=== PATIENT | male | born 1975 | race Caucasian/White ===

== ENCOUNTER 2021-01-24 20:52 | Inpatient (IN) | payer BC ==
[2021-01-24] MEDS ORDERED: HYDROmorphone 1 MG/ML 1 ML SYRINGE IVP STA ×2 (21:13→22:12)
[2021-01-24] MEDS ORDERED: diphenhydrAMINE 50 MG/ML 1 ML VIAL IVP STA (21:13)
[2021-01-24] MEDS ORDERED: FAMOTIDINE 20 MG/2 ML VIAL IV STA (21:13)
[2021-01-24] MEDS ORDERED: methylPREDNISolone SOD SUCCI 125 MG/2 ML VIAL IV STA (21:14)
--- NOTE | 2021-01-24 21:17 | ED ---
General Adult HPI - General Chief complaint: Abdominal Pain Stated complaint: Abdominal pain Time Seen by Provider: 01/24/21 21:06 Source: patient, family, RN notes reviewed Mode of arrival: wheelchair Limitations: no limitations - History of Present Illness Initial comments: Patient is a pleasant 45-year-old male presenting to the emergency Department with complaints of epigastric pain. Onset of symptoms was around 2 hours ago. Symptoms started fairly suddenly following an hour after eating. Discomfort is in the epigastric region. Discomfort feels a pressure and there is some radiation towards the back. No dyspnea. No pain in the chest. No history of similar symptoms previously. Discomfort is rated 8/10 and persistent. Patient occasionally drinks alcohol. No diaphoresis. No vomiting. - Related Data Home Medications Medication Instructions Recorded Confirmed No Known Home Medications 01/24/21 01/24/21 Allergies Allergy/AdvReac Type Severity Reaction Status Date / Time Iodinated Contrast Media Allergy Anaphylaxis Verified 01/24/21 22:54 shellfish derived [Shellfish] Allergy Anaphylaxis Verified 01/24/21 22:54 Review of Systems ROS Statement: Those systems with pertinent positive or pertinent negative responses have been documented in the HPI. ROS Other: All systems not noted in ROS Statement are negative. Constitutional: Denies: fever Eyes: Denies: eye pain ENT: Denies: ear pain Respiratory: Denies: cough, dyspnea Cardiovascular: Reports: as per HPI. Denies: chest pain Endocrine: Denies: fatigue Gastrointestinal: Reports: as per HPI, abdominal pain Musculoskeletal: Denies: arthralgia Skin: Denies: rash Neurological: Denies: weakness Past Medical History Past Medical History: Hypertension History of Any Multi-Drug Resistant Organisms: None Reported Past Surgical History: Orthopedic Surgery Past Psychological History: No Psychological Hx Reported Smoking Status: Never smoker Past Alcohol Use History: Occasional Past Drug Use History: None Reported General Exam Limitations: no limitations General appearance: alert Head exam: Present: atraumatic Eye exam: Present: normal appearance ENT exam: Present: normal exam Neck exam: Present: normal inspection Respiratory exam: Present: normal lung sounds bilaterally. Absent: chest wall tenderness Cardiovascular Exam: Present: regular rate, normal rhythm, normal heart sounds Expanded Peripheral pulses: 2+: Radial (R), Radial (L), Dorsalis Pedis (R), Dorsalis Pedis (L) GI/Abdominal exam: Present: soft, tenderness (Moderate epigastric tenderness to palpation), normal bowel sounds. Absent: distended, rebound, rigid, pulsatile mass Extremities exam: Present: normal inspection. Absent: pedal edema, calf tenderness Neurological exam: Present: alert Psychiatric exam: Present: normal affect, normal mood Skin exam: Present: normal color Course Vital Signs 01/24/21 01/24/21 20:58 22:42 Temperature 98.8 F Pulse Rate 68 72 Respiratory 18 18 Rate Blood Pressure 173/98 164/89 O2 Sat by Pulse 98 98 Oximetry EKG Findings - EKG Comments: EKG Findings:: Normal sinus rhythm 66. FL 148. QRS 92. QT 380. QTC 398. Normal axis. Normal QRS. No acute ST change. Medical Decision Making - Medical Decision Making Patient reevaluated and feels somewhat improved. Abdomen still with moderate tenderness epigastrium and right upper quadrant. Patient states discomfort has improved to 4-5/10 following several medications. Case was discussed with Dr. Nowak, who will admit. - Lab Data Result diagrams: 01/24/21 21:31 01/24/21 21:31 Lab Results 01/24/21 01/24/21 01/24/21 Range/Units 21:31 21:31 21:31 WBC 8.9 (3.8-10.6) k/uL RBC 4.61 (4.30-5.90) m/uL Hgb 14.0 (13.0-17.5) gm/dL Hct 39.9 (39.0-53.0) % MCV 86.5 (80.0-100.0) fL MCH 30.4 (25.0-35.0) pg MCHC 35.1 (31.0-37.0) g/dL RDW 11.9 (11.5-15.5) % Plt Count 260 (150-450) k/uL MPV 6.7 Neutrophils % 64 % Lymphocytes % 26 % Monocytes % 6 % Eosinophils % 2 % Basophils % 0 % Neutrophils # 5.7 (1.3-7.7) k/uL Lymphocytes # 2.3 (1.0-4.8) k/uL Monocytes # 0.6 (0-1.0) k/uL Eosinophils # 0.2 (0-0.7) k/uL Basophils # 0.0 (0-0.2) k/uL PT (9.0-12.0) sec INR (<1.2) APTT (22.0-30.0) sec Sodium 137 (137-145) mmol/L Potassium 3.8 (3.5-5.1) mmol/L Chloride 101 (98-107) mmol/L Carbon Dioxide 24 (22-30) mmol/L Anion Gap 12 mmol/L BUN 16 (9-20) mg/dL Creatinine 0.86 (0.66-1.25) mg/dL Est GFR (CKD-EPI)AfAm >90 (>60 ml/min/1.73 sqM) Est GFR (CKD-EPI)NonAf >90 (>60 ml/min/1.73 sqM) Glucose 103 H (74-99) mg/dL Calcium 9.2 (8.4-10.2) mg/dL Total Bilirubin 0.6 (0.2-1.3) mg/dL AST 38 (17-59) U/L ALT 38 (4-49) U/L Alkaline Phosphatase 86 (38-126) U/L Troponin I <0.012 (0.000-0.034) ng/mL Total Protein 7.3 (6.3-8.2) g/dL Albumin 4.4 (3.5-5.0) g/dL Amylase 60 (30-110) U/L Lipase 140 (23-300) U/L 01/24/21 Range/Units 21:31 WBC (3.8-10.6) k/uL RBC (4.30-5.90) m/uL Hgb (13.0-17.5) gm/dL Hct (39.0-53.0) % MCV (80.0-100.0) fL MCH (25.0-35.0) pg MCHC (31.0-37.0) g/dL RDW (11.5-15.5) % Plt Count (150-450) k/uL MPV Neutrophils % % Lymphocytes % % Monocytes % % Eosinophils % % Basophils % % Neutrophils # (1.3-7.7) k/uL Lymphocytes # (1.0-4.8) k/uL Monocytes # (0-1.0) k/uL Eosinophils # (0-0.7) k/uL Basophils # (0-0.2) k/uL PT 10.2 (9.0-12.0) sec INR 0.9 (<1.2) APTT 24.9 (22.0-30.0) sec Sodium (137-145) mmol/L Potassium (3.5-5.1) mmol/L Chloride (98-107) mmol/L Carbon Dioxide (22-30) mmol/L Anion Gap mmol/L BUN (9-20) mg/dL Creatinine (0.66-1.25) mg/dL Est GFR (CKD-EPI)AfAm (>60 ml/min/1.73 sqM) Est GFR (CKD-EPI)NonAf (>60 ml/min/1.73 sqM) Glucose (74-99) mg/dL Calcium (8.4-10.2) mg/dL Total Bilirubin (0.2-1.3) mg/dL AST (17-59) U/L ALT (4-49) U/L Alkaline Phosphatase (38-126) U/L Troponin I (0.000-0.034) ng/mL Total Protein (6.3-8.2) g/dL Albumin (3.5-5.0) g/dL Amylase (30-110) U/L Lipase (23-300) U/L - Radiology Data Radiology results: report reviewed (Computed tomography scan abdomen pelvis reveals no acute process. Gallbladder ultrasound does show distended gallbladder. Positive Koroma sign), image reviewed (Chest x-ray shows no acute process) Disposition Clinical Impression: Biliary colic Disposition: ADMITTED IP TO THIS [facility] Is patient prescribed a controlled substance at d/c from ED?: No Referrals: Roel Gama DO [Primary Care Provider] - 1-2 days Decision Time: 23:16
[2021-01-24 21:38] LABS: Basophils % (A) 0 %; Eosinophils # (A) 0.2 k/uL (0-0.7); Eosinophils % (A) 2 %; HCT 39.9 % (39.0-53.0); Lymphocytes # (A) 2.3 k/uL (1.0-4.8); Lymphocytes % (A) 26 %; MCH 30.4 pg (25.0-35.0); MCHC 35.1 g/dL (31.0-37.0); MCV 86.5 fL (80.0-100.0); Mean Platelet Volume 6.7; Monocytes # (A) 0.6 k/uL (0-1.0); Monocytes % (A) 6 %; Neutrophils # (A) 5.7 k/uL (1.3-7.7); Neutrophils % (A) 64 %; Platelet Count 260 k/uL (150-450); RBC 4.61 m/uL (4.30-5.90); RDW 11.9 % (11.5-15.5); WBC 8.9 k/uL (3.8-10.6)
[2021-01-24 21:50] LABS: ALT 38 U/L (4-49); AST 38 U/L (17-59); African American GFR (CKD) >90 (>60 ml/min/1.73 sqM); Albumin 4.4 g/dL (3.5-5.0); Alkaline Phosphatase 86 U/L (38-126); Amylase 60 U/L (30-110); Anion Gap 12 mmol/L; Blood Urea Nitrogen 16 mg/dL (9-20); Calcium 9.2 mg/dL (8.4-10.2); Carbon Dioxide 24 mmol/L (22-30); Chloride 101 mmol/L (98-107); Glucose 103 mg/dL (74-99); Lipase 140 U/L (23-300); Non-African American GFR(CKD) >90 (>60 ml/min/1.73 sqM); Potassium 3.8 mmol/L (3.5-5.1); Sodium 137 mmol/L (137-145); Total Bilirubin 0.6 mg/dL (0.2-1.3); Total Protein 7.3 g/dL (6.3-8.2)
[2021-01-24] MEDS ORDERED: METOCLOPRAMIDE 5 MG/ML 2 ML VIAL IVP STA (22:12)
--- NOTE | 2021-01-24 22:14 | CT ---
EXAMINATION TYPE: CT abdomen pelvis w con DATE OF EXAM: 01/24/2021 COMPARISON: Abdominal pain HISTORY: c/o upper abdominal pain CT DLP: 1334.6 mGycm Automated exposure control for dose reduction was used. CONTRAST: Performed with IV Contrast, patient injected with 100 mL of Isovue 300. Images obtained from the diaphragm to the floor the pelvis with IV contrast. Lung bases are clear of consolidation. There is no pleural effusion. Heart size is normal. There is n o pericardial effusion. There is a low density 1.5 cm infiltrate in the subpleural posterior left low er lobe. Liver spleen pancreas gallbladder stomach appear intact. The bile ducts are not dilated. There is no adrenal mass. Kidneys show satisfactory contrast opacification. There is no hydronephrosi s. Ureters are not dilated. There is no retroperitoneal adenopathy. Delayed images show normal renal excretion. Appendix is posterior and appears normal. There are numerous sigmoid diverticula. There is no evidence of diverticulitis. The lumbar vertebra have normal alignment. There is L5 spondylolysis without spondylolisthesis. The bony pelvis and hip joints are intact. Bladder distends smoothly. There is no inguinal hernia. There is no free fluid in the pelvis. There i s no sign of a pelvic mass. There is no mesenteric edema. There is no ascites or free air. There is no bowel obstruction. IMPRESSION: There is sigmoid diverticulosis without diverticulitis. Normal appendix. No evidence of acute abdomen and pelvis.
--- NOTE | 2021-01-24 22:15 | XR ---
EXAMINATION TYPE: XR chest 2V DATE OF EXAM: 01/24/2021 COMPARISON: NONE HISTORY: Chest pain TECHNIQUE: 2 views FINDINGS: There is no heart failure nor confluent pneumonic infiltrate. Costophrenic angles are clear . There are chest leads. Bony thorax is intact. IMPRESSION: No active cardiomegaly disease. Normal heart.
[2021-01-24 22:18] LABS: INR 0.9 (<1.2); Partial Thromboplastin Time 24.9 sec (22.0-30.0); Prothrombin Time 10.2 sec (9.0-12.0)
--- NOTE | 2021-01-24 22:59 | US ---
EXAMINATION TYPE: US gallbladder DATE OF EXAM: 01/24/2021 COMPARISON: CT CLINICAL HISTORY: pain. Pain x 4 hours. Hx kidney stones. EXAM MEASUREMENTS: Liver Length: 18.74 cm Gallbladder Wall: 0.26 cm CBD: 0.63 cm Right Kidney: 12.1 x 5.5 x 6.1 cm Pancreas: Limited visibility of tail due to overlying bowel gas. Liver: Appears enlarged and to have an increased echogenicity. Gallbladder: Appears distended measuring 11.01 cm in length. There appears to be a Phrygian cap. Mi nimal internal echoes versus artifact. Evidence for sonographic Koroma's sign: Yes CBD: Measures upper limits of normal. Right Kidney: No hydronephrosis or masses seen. Measures upper limits of normal. No dilated ducts. No focal liver defect. IMPRESSION: Gallbladder measures 3.7 cm in diameter. No gallstones seen.
[2021-01-24] MEDS ORDERED: NALOXONE 0.4 MG/ML 1 ML VIAL IV PRN (23:16)
[2021-01-24] MEDS ORDERED: ONDANSETRON 4 MG/2 ML VIAL IVP PRN (23:16)
[2021-01-24 23:21] LABS: Appearance,Urine Clear (Clear); Bilirubin,Urine Negative (Negative); Blood,Urine Negative (Negative); Color,Urine Yellow; Glucose,Urine (UA) Negative (Negative); Ketones,Urine 1+ (Negative); Leukocyte Esterase,Urine Negative (Negative); Nitrite,Urine Negative (Negative); Protein,Urine Negative (Negative); Urobilinogen,Urine <2.0 mg/dL (<2.0)
[2021-01-24] MEDS: SODIUM CHLORIDE 0.9% 1,000 ML IV SCH (23:47)
[2021-01-25 06:19] LABS: Basophils % (A) 0 %; Eosinophils % (A) 0 %; Lymphocytes # (A) 0.6 k/uL (1.0-4.8); Lymphocytes % (A) 4 %; MCHC 35.6 g/dL (31.0-37.0); MCV 86.9 fL (80.0-100.0); Mean Platelet Volume 7.1; Monocytes # (A) 0.6 k/uL (0-1.0); Monocytes % (A) 4 %; Neutrophils # (A) 13.8 k/uL (1.3-7.7); Neutrophils % (A) 91 %; Platelet Count 271 k/uL (150-450); RBC 4.84 m/uL (4.30-5.90); RDW 11.8 % (11.5-15.5); WBC 15.2 k/uL (3.8-10.6)
[2021-01-25 06:32] LABS: ALT 37 U/L (4-49); AST 34 U/L (17-59); African American GFR (CKD) >90 (>60 ml/min/1.73 sqM); Albumin 4.2 g/dL (3.5-5.0); Alkaline Phosphatase 67 U/L (38-126); Anion Gap 10 mmol/L; Blood Urea Nitrogen 13 mg/dL (9-20); Calcium 9.2 mg/dL (8.4-10.2); Carbon Dioxide 22 mmol/L (22-30); Chloride 104 mmol/L (98-107); Glucose 178 mg/dL (74-99); Lipase 66 U/L (23-300); Non-African American GFR(CKD) >90 (>60 ml/min/1.73 sqM); Potassium 4.4 mmol/L (3.5-5.1); Sodium 136 mmol/L (137-145); Total Bilirubin 0.7 mg/dL (0.2-1.3); Total Protein 7.2 g/dL (6.3-8.2)
[2021-01-25] MEDS: SODIUM CHLORIDE 0.9% 1,000 ML IV SCH ×2 (07:31→15:16)
[2021-01-25] MEDS: PANTOPRAZOLE 40 MG/10 ML VIAL IV SCH (08:48)
[2021-01-25] MEDS ORDERED: GABAPENTIN 300 MG CAP PO PRN (09:34)
[2021-01-25] MEDS ORDERED: TAMSULOSIN 0.4 MG CAP.ER.24H PO STA (09:34)
--- NOTE | 2021-01-25 09:37 | P.GSHP ---
History of Present Illness H&P Date: 01/25/21 CHIEF COMPLAINT: Cholecystitis HISTORY OF PRESENT ILLNESS: The patient is a 45-year-old male who presents acutely with severe right upper quadrant and right upper back pain following sweetish meatballs last night. The pain is still persistent. He reports his pain is moderate to severe. He denies any previous episodes. Chemical workup was consistent with acute cholecystitis since his admission. PAST MEDICAL HISTORY: Please see list and reviewed PAST SURGICAL HISTORY: Please see list and reviewed MEDICATIONS: Please see list and reviewed ALLERGIES: Please see list and reviewed SOCIAL HISTORY: Please see list and reviewed FAMILY HISTORY: Please see list and reviewed REVIEW OF ORGAN SYSTEMS: CONSTITUTIONAL: No reports of fevers or chills. HEENT: Denies any troubles with the vision or hearing. ENDOCRINE: No reports of hypothyroidism. No diabetes. RESPIRATORY: No recent pneumonias. CARDIOVASCULAR: Denies chest pain or palpitations GI: No blood in stools or constipation. MUSCULOSKELETAL: Has occasional joint pain including back pain. NEURO: No seizure disorders or headaches. No recent stroke. PSYCH: No depression or suicidal ideation. HEMATOLOGIC: No personal or family history of DVTs or pulmonary emboli. SKIN: No skin cancer or rash. PHYSICAL EXAM: VITAL SIGNS: Afebrile vital signs stable GENERAL: Well-developed pleasant male in mild distress. HEENT: No scleral icterus. Extraocular movements grossly intact. Moist buccal mucosa. NECK: Supple without lymphadenopathy. CHEST: Unlabored respirations. Equal bilateral excursions. CARDIOVASCULAR: Regular rate regular rhythm rhythm. Distal 2+ pulses. ABDOMEN: Soft, nondistended. Tender along the epigastrium and right upper quadrant MUSCULOSKELETAL: No clubbing, cyanosis, or edema. NEURO : No focal or lateralizing signs. Cranial nerves II-12 within normal limits. PSYCH: Alert and oriented to person, place and time. SKIN: Well perfused. Good skin turgor. LABS: Reviewed with elevated white count over 15,000. LFTs within normal limits. STUDIES: Ultrasound of the gallbladder independently reviewed demonstrating gallbladder sludge with mildly thickened gallbladder wall. This my independent interpretation. CT of the abdomen and pelvis independent review demonstrates no features of smal l bowel obstruction. No significant appendicitis. This is my independent interpretation. EKG: Reviewed with normal sinus rhythm, normal EKG ASSESSMENT: 1. Acute cholecystitis PLAN: 1. Will need a robotic cholecystectomy possible open. Benefits and risks were described. 2. Heparin for DVT prophylaxis 5000 units. 3. Antibiotic prophylaxis. 4. He is elevated risk with emergent presentation. Past Medical History Past Medical History: Hypertension History of Any Multi-Drug Resistant Organisms: None Reported Past Surgical History: Orthopedic Surgery Past Anesthesia/Blood Transfusion Reactions: No Reported Reaction Past Psychological History: No Psychological Hx Reported Smoking Status: Never smoker Past Alcohol Use History: Occasional Past Drug Use History: None Reported Medications and Allergies Home Medications Medication Instructions Recorded Confirmed Type No Known Home Medications 01/24/21 01/24/21 History Allergies Allergy/AdvReac Type Severity Reaction Status Date / Time Iodinated Contrast Media Allergy Anaphylaxis Verified 01/24/21 22:54 shellfish derived [Shellfish] Allergy Anaphylaxis Verified 01/24/21 22:54 Surgical - Exam Vital Signs Temp Pulse Resp BP Pulse Ox 98.8 F 68 18 173/98 98 01/24/21 20:58 01/24/21 20:58 01/24/21 20:58 01/24/21 20:58 01/24/21 20:58 Results - Labs 01/25/21 05:57 01/25/21 05:57 Abnormal Lab Results - Last 24 Hours (Table) 01/24/21 01/24/21 01/25/21 Range/Units 21:31 23:04 05:57 WBC 15.2 H (3.8-10.6) k/uL Neutrophils # 13.8 H (1.3-7.7) k/uL Lymphocytes # 0.6 L (1.0-4.8) k/uL Sodium (137-145) mmol/L Glucose 103 H (74-99) mg/dL Ur Specific [place] 1.050 H (1.001-1.035) Urine Ketones 1+ H (Negative) 01/25/21 Range/Units 05:57 WBC (3.8-10.6) k/uL Neutrophils # (1.3-7.7) k/uL Lymphocytes # (1.0-4.8) k/uL Sodium 136 L (137-145) mmol/L Glucose 178 H (74-99) mg/dL Ur Specific [place] (1.001-1.035) Urine Ketones (Negative) Diabetes panel 01/24/21 01/25/21 Range/Units 21:31 05:57 Sodium 137 136 L (137-145) mmol/L Potassium 3.8 4.4 (3.5-5.1) mmol/L Chloride 101 104 (98-107) mmol/L Carbon Dioxide 24 22 (22-30) mmol/L BUN 16 13 (9-20) mg/dL Creatinine 0.86 0.75 (0.66-1.25) mg/dL Glucose 103 H 178 H (74-99) mg/dL Calcium 9.2 9.2 (8.4-10.2) mg/dL AST 38 34 (17-59) U/L ALT 38 37 (4-49) U/L Alkaline Phosphatase 86 67 (38-126) U/L Total Protein 7.3 7.2 (6.3-8.2) g/dL Albumin 4.4 4.2 (3.5-5.0) g/dL Calcium panel 01/24/21 01/25/21 Range/Units 21:31 05:57 Calcium 9.2 9.2 (8.4-10.2) mg/dL Albumin 4.4 4.2 (3.5-5.0) g/dL Pituitary panel 01/24/21 01/25/21 Range/Units 21:31 05:57 Sodium 137 136 L (137-145) mmol/L Potassium 3.8 4.4 (3.5-5.1) mmol/L Chloride 101 104 (98-107) mmol/L Carbon Dioxide 24 22 (22-30) mmol/L BUN 16 13 (9-20) mg/dL Creatinine 0.86 0.75 (0.66-1.25) mg/dL Glucose 103 H 178 H (74-99) mg/dL Calcium 9.2 9.2 (8.4-10.2) mg/dL Adrenal panel 01/24/21 01/25/21 Range/Units 21:31 05:57 Sodium 137 136 L (137-145) mmol/L Potassium 3.8 4.4 (3.5-5.1) mmol/L Chloride 101 104 (98-107) mmol/L Carbon Dioxide 24 22 (22-30) mmol/L BUN 16 13 (9-20) mg/dL Creatinine 0.86 0.75 (0.66-1.25) mg/dL Glucose 103 H 178 H (74-99) mg/dL Calcium 9.2 9.2 (8.4-10.2) mg/dL Total Bilirubin 0.6 0.7 (0.2-1.3) mg/dL AST 38 34 (17-59) U/L ALT 38 37 (4-49) U/L Alkaline Phosphatase 86 67 (38-126) U/L Total Protein 7.3 7.2 (6.3-8.2) g/dL Albumin 4.4 4.2 (3.5-5.0) g/dL Assessment and Plan (1) Acute cholecystitis Current Visit: Yes Status: Acute Code(s): K81.0 - ACUTE CHOLECYSTITIS [facility] ED Code(s): 21716784
[2021-01-25] MEDS ORDERED: IV FLUID CONTINUATION 1,000 ML IV ONE (09:42)
[2021-01-25] MEDS ORDERED: ACETAMINOPHEN TAB 500 MG TAB PO STA (09:50)
[2021-01-25] MEDS ORDERED: ACETAMINOPHEN TAB 500 MG TAB ONE (09:51)
[2021-01-25] MEDS: MELOXICAM 7.5 MG TAB PO SCH (09:54)
[2021-01-25] MEDS ORDERED: DEXAMETHASONE SOD PHOSPHATE 4 MG/ML 1 ML VIAL IV ONE (09:55)
[2021-01-25] MEDS ORDERED: LIDOCAINE 1% INJ 10MG/ML (20 ML MDV) ONE (10:50)
[2021-01-25] MEDS ORDERED: fentaNYL (PF) 50 MCG/ML 2 ML AMP ONE (10:50)
[2021-01-25] MEDS ORDERED: DEXAMETHASONE SOD PHOSPHATE 10 MG/ML 1 ML VIAL ONE (10:50)
[2021-01-25] MEDS ORDERED: PROPOFOL 10 MG/ML 20 ML VIAL IV ONE (10:50)
[2021-01-25] MEDS ORDERED: ROCURONIUM 10 MG/ML (5 ML VIAL) IV ONE (10:50)
[2021-01-25] MEDS ORDERED: MIDAZOLAM 2 MG/2 ML VIAL ONE (10:50)
[2021-01-25] MEDS ORDERED: diphenhydrAMINE 50 MG/ML 1 ML VIAL ONE (10:50)
[2021-01-25] MEDS ORDERED: HYDROmorphone (PF) 1 MG/ML ONE (10:50)
[2021-01-25] MEDS ORDERED: NEOSTIGMINE 1 MG/ML 10 ML VIAL ONE (10:50)
[2021-01-25] MEDS ORDERED: GLYCOPYRROLATE 0.2 MG/ML 2 ML VIAL ONE (10:50)
[2021-01-25] MEDS ORDERED: SUCCINYLCHOLINE CHLORIDE 100 MG/5 ML SYR IV ONE (10:50)
[2021-01-25] MEDS ORDERED: INDOCYANINE GREEN 25 MG VIAL IV ONE (10:50)
[2021-01-25] MEDS ORDERED: BUPIVACAIN-EPI 0.5%-1:200,000 30 ML VIAL SQ ONE (11:18)
[2021-01-25] MEDS: PIPERACILLIN-TAZOBACTAM 3.375 GM in SODIUM CHLORIDE 0.9% 100 ML IVPB STA ×2 (12:45→12:46)
[2021-01-25] MEDS ORDERED: LACTATED RINGERS 1,000 ML IV ONE (13:07)
--- NOTE | 2021-01-25 14:02 | P.OP ---
Date of Procedure: 01/25/21 Description of Procedure: SURGEON: BRITTA ALTMAN MD PREOPERATIVE DIAGNOSES: 1. Acute cholecystitis 2. Essential hypertension 3. Leukocytosis POSTOPERATIVE DIAGNOSES: 1. Acute gangrenous cholecystitis 2. Essential hypertension 3. Leukocytosis OPERATION: 1. Robotic-assisted da Chyna Xi laparoscopic subtotal cholecystectomy, multiport with FIREFLY ESTIMATED BLOOD LOSS: 100 mL. SPECIMENS REMOVED: Gallbladder. COMPLICATIONS: None. Pathology: other (Gallbladder, gallbladder fluid) Condition: stable Disposition: floor Operative Findings: 1. Acute gangrenous cholecystitis with dense adhesions of cystic duct and infundibulum to common bile duct structures. 2. Subtotal cholecystectomy performed 3. Hemostasis obtained using Surgicel Fibrillar along liver bed INDICATIONS: The patient is a 45 year-old male who presents with epigastric right upper quadrant pain, white blood cell count over 15,000, and clinical features of acute cholecystitis. Surgical intervention with cholecystectomy was described. Robotic assisted laparoscopic approach was described. Benefits and risks of the procedure including but not limited to bleeding, infection, injury to the biliary tree was reviewed. Informed consent was obtained. DESCRIPTION OF PROCEDURE: Patient was brought to the operating room, placed in supine position. After general induction, the abdomen had been prepped and draped in standard sterile fashion. The robotic da Chyna XI system was primed. After a timeout protocol was performed, the patient had been prepped and draped in standard sterile fashion. The patient was injected with indocyanine green including with Decadron and Benadryl. A 5 mm 0 degrees laparoscopic trocar entry was performed along the left upper quadrant. The abdomen insufflated to 15 mmHg pressure which was tolerated well. Diagnostic laparoscopy demonstrated no injury to bowel viscera or mesentery. The liver surface was unremarkable. A moderately distended gallbladder was i dentified adding complexity to the case. Next, two 8 mm robotic ports were placed along the right upper abdomen. The camera 8-mm port was maintained along the epigastrium. Another 8 mm port was placed along the left upper abdominal wall after exchanging the 5 mm port. Please note that the ports were placed at least 10 to 15 cm away from the target anatomy of the gallbladder. The robot was docked along the left lateral abdomen. The patient was repositioned in reverse Trendelenburg position at 21 with the right side up 70. Using a grasper for arm 3, a grasper for arm 4, including hook cautery for arm 1, the robotic system was docked and primed as described. Instruments were interchanged by the academic assistant including hook cautery, Bovie cautery and clip appliers. Additional instruments including vessel sealer, robotic suction gas refrigerator servicer, robotic stapler were made available. I had sat at the console. The gallbladder was reflected towards the dome of the liver. The gallbladder was moderately distended adding complexity to the case. Edema was found along the cystic triangle including infundibulum. Initial dissection was performed on the gallbladder infundibulum using indocyanine green to illuminate the cystic duct and common bile duct. The entire gallbladder was not opacified consistent with acute cholecystitis. Due to moderate distention of the infundibulum, dome down technique was performed for removing the gallbladder from the hepatic fossa starting from the fundus towards the infundibulum. Using a sponge, the liver was reflected towards the diaphragm and starting at the gallbladder fundus, hook cautery was used between the liver and the gallbladder. As the gallbladder was dissected from the hepatic fossa, hemostasis was checked using vessel sealer along the posterior gallbladder including hemostatic agents of Surgicel and fibrillar. Next, indocyanine green was used to confirm the common bile duct as well as cystic duct. The entire gallbladder was without contrast consistent with acute cholecystitis. The infundibulum was retracted laterally revealing that the cystic structures was adherent to the common bile duct. A subtotal cholecystectomy was proposed to avoid injury to the common bile duct. The left upper quadrant trocar was exchanged for a 12 mm robotic trocar. FIREFLY was used to identify the common bile duct. Robotic 45 mm green staple loads were fired across the infundibulum as the cystic duct and cystic structures were moderately edematous. Bleeding along the liver bed was controlled and hemostatic agents. Indocyanine green was used to confirm no bile leak from the staple line. Sponges were removed from the abdomen. The robot was undocked. I re-scrubbed into the case. A 10 mm Endo Catch bag was used to remove the gallbladder in total via the left upper quadrant incision after widening the incision. The specimen was removed from the abdominal cavity. Mikhail Stevens and 0 Vicryl was used to close the fascial defect of the left upper quadrant. All pneumoperitoneum instruments were evacuated from the abdominal cavity. The incisions were cleansed using dilute hydrogen peroxide. The incisions were reapproximated using 4-0 Monocryl in an interrupted subcuticular fashion. Please note along the trocar sites, local anesthetic was placed as a field block prior to insertion of all instruments. Liquid glue was applied to the skin. Optifoam was placed along the left upper quadrant. At the end of the procedure needle, sponge, and instrument count had been verified correct by the manager surgical. The patient was transferred to postanesthesia care unit in stable condition. Intraoperative findings were discussed with his over the telephone including gangrenous cholecystitis.
[2021-01-25] MEDS: PIPERACILLIN-TAZOBACTAM 3.375 GM in SODIUM CHLORIDE 0.9% 100 ML IVPB SCH ×2 (15:16→23:06)
[2021-01-25] MEDS: ACETAMINOPHEN TAB 500 MG TAB PO SCH ×2 (17:42→23:06)
[2021-01-25] MEDS: HYDROmorphone 0.5 MG/0.5 ML SYRINGE IVP PRN (23:07)
[2021-01-26] MEDS: SODIUM CHLORIDE 0.9% 1,000 ML IV SCH ×4 (00:25→23:38)
[2021-01-26] MEDS: HYDROmorphone 0.5 MG/0.5 ML SYRINGE IVP PRN ×2 (03:56→23:39)
[2021-01-26] MEDS: ACETAMINOPHEN TAB 500 MG TAB PO SCH ×4 (05:28→23:38)
[2021-01-26 06:00] LABS: Basophils % (A) 0 %; Eosinophils % (A) 0 %; HCT 36.8 % (39.0-53.0); HGB 12.8 gm/dL (13.0-17.5); Lymphocytes # (A) 1.1 k/uL (1.0-4.8); Lymphocytes % (A) 7 %; MCHC 34.7 g/dL (31.0-37.0); MCV 89.4 fL (80.0-100.0); Mean Platelet Volume 7.3; Monocytes # (A) 0.8 k/uL (0-1.0); Monocytes % (A) 5 %; Neutrophils # (A) 13.3 k/uL (1.3-7.7); Neutrophils % (A) 87 %; Platelet Count 256 k/uL (150-450); RBC 4.12 m/uL (4.30-5.90); RDW 12.2 % (11.5-15.5); WBC 15.3 k/uL (3.8-10.6)
[2021-01-26 06:22] LABS: ALT 39 U/L (4-49); AST 40 U/L (17-59); African American GFR (CKD) >90 (>60 ml/min/1.73 sqM); Albumin 3.5 g/dL (3.5-5.0); Albumin/Globulin Ratio 1.3; Alkaline Phosphatase 55 U/L (38-126); Anion Gap 8 mmol/L; Blood Urea Nitrogen 13 mg/dL (9-20); Calcium 8.6 mg/dL (8.4-10.2); Carbon Dioxide 24 mmol/L (22-30); Chloride 106 mmol/L (98-107); Globulin 2.7 g/dL; Glucose 138 mg/dL (74-99); Non-African American GFR(CKD) >90 (>60 ml/min/1.73 sqM); Potassium 4.3 mmol/L (3.5-5.1); Sodium 138 mmol/L (137-145); Total Bilirubin 0.6 mg/dL (0.2-1.3); Total Protein 6.2 g/dL (6.3-8.2)
[2021-01-26] MEDS: HYDROmorphone 1 MG/ML 1 ML SYRINGE IVP PRN ×2 (07:13→17:23)
[2021-01-26] MEDS: PIPERACILLIN-TAZOBACTAM 3.375 GM in SODIUM CHLORIDE 0.9% 100 ML IVPB SCH ×3 (07:14→23:39)
[2021-01-26] MEDS: MELOXICAM 7.5 MG TAB PO SCH (07:14)
[2021-01-26] MEDS: ENOXAPARIN 30 MG/0.3 ML SYRINGE SQ SCH (07:15)
[2021-01-26] MEDS: PANTOPRAZOLE 40 MG/10 ML VIAL IV SCH (07:15)
--- NOTE | 2021-01-26 10:50 | P.PN ---
Subjective Progress Note Date: 01/26/21 CHIEF COMPLAINT: Gangrene Cholecystitis c HISTORY OF PRESENT ILLNESS: The patient is a 45-year-old male postop day 1 status post robotic cholecystectomy. He is doing well and feeling better. Images reviewed from surgery with gangrenous gallbladder, subtotal cholecystectomy, and blood loss. He reports urinary retention. He reports epigastric fullness and left upper quadrant pain that is appropriate. REVIEW OF ORGAN SYSTEMS: No fevers or chills. PHYSICAL EXAM: VITAL SIGNS: Afebrile vital signs stable GENERAL: Well-developed pleasant male in mild distress. HEENT: No scleral icterus. Extraocular movements grossly intact. Moist buccal mucosa. NECK: Supple without lymphadenopathy. CHEST: Unlabored respirations. Equal bilateral excursions. CARDIOVASCULAR: Regular rate regular rhythm rhythm. Distal 2+ pulses. ABDOMEN: Soft, nondistended. No peritonitis. Dressing clean dry and intact. MUSCULOSKELETAL: No clubbing, cyanosis, or edema. NEURO : No focal or lateralizing signs. Cranial nerves II-12 within normal limits. PSYCH: Alert and oriented to person, place and time. SKIN: Well perfused. Good skin turgor. LABS: Reviewed with elevated white count over 15,000. Labs reviewed and appropriate due to stress response also from surgery. ASSESSMENT: 1. Acute gangrenous cholecystitis PLAN: 1. Care plan and images reviewed for gangrenous cholecystitis. 2. Recommend inpatient admission due to gangrenous cholecystitis and will need IV antibiotics. 3. Discharge home following normal WBC. 4. Follow up at office and diet post-discharge reviewed. 5. Flomax ordered urinary tension. Objective - Vital Signs Vital signs: Vital Signs Temp 98.2 F 01/26/21 06:54 Pulse 64 01/26/21 06:54 Resp 18 01/26/21 06:54 BP 122/57 01/26/21 06:54 Pulse Ox 95 01/26/21 06:54 Intake & Output 01/25/21 01/26/21 01/26/21 18:59 06:59 18:59 Intake Total 1650 100 Output Total 100 Balance 1550 100 Weight 104.326 kg Intake: IV 1650 Intake, IV Titration 100 Amount Piperacillin-Tazobactam 3 100 .375 gm In Sodium Chloride 0.9% 100 ml @ 25 mls/hr IVPB Q8HR [facility] Rx# :[id number] Output: Estimated Blood Loss 100 Other: Voiding Method Toilet Toilet Toilet # Voids 1 - Labs CBC & Chem 7: 01/27/21 05:26 01/27/21 05:26 Labs: Abnormal Lab Results - Last 24 Hours (Table) 01/26/21 01/26/21 Range/Units 05:07 05:07 WBC 15.3 H (3.8-10.6) k/uL RBC 4.12 L (4.30-5.90) m/uL Hgb 12.8 L (13.0-17.5) gm/dL Hct 36.8 L (39.0-53.0) % Neutrophils # 13.3 H (1.3-7.7) k/uL Glucose 138 H (74-99) mg/dL Total Protein 6.2 L (6.3-8.2) g/dL Microbiology - Last 24 Hours (Table) 01/25/21 13:41 Gram Stain - Preliminary Other - Other Wound Culture - Preliminary 01/25/21 13:41 Anaerobic Culture - Preliminary Other - Other Assessment and Plan (1) Acute cholecystitis Status: Acute Code(s): K81.0 - ACUTE CHOLECYSTITIS SNOMED Code(s): 58163195 (2) Urinary retention Status: Acute Code(s): R33.9 - RETENTION OF URINE, UNSPECIFIED SNOMED Code(s): 051354482 (3) Gangrene of gallbladder in cholecystitis Status: Acute Code(s): K82.A1 - GANGRENE OF GALLBLADDER IN CHOLECYSTITIS SNOMED Code(s): 784060037
[2021-01-26] MEDS: TAMSULOSIN 0.4 MG CAP.ER.24H PO SCH (11:11)
[2021-01-27] MEDS: HYDROmorphone 0.5 MG/0.5 ML SYRINGE IVP PRN (04:29)
[2021-01-27 05:53] LABS: Basophils % (A) 0 %; Eosinophils # (A) 0.1 k/uL (0-0.7); Eosinophils % (A) 1 %; HCT 34.4 % (39.0-53.0); HGB 11.9 gm/dL (13.0-17.5); Lymphocytes # (A) 1.8 k/uL (1.0-4.8); Lymphocytes % (A) 19 %; MCHC 34.6 g/dL (31.0-37.0); MCV 89.7 fL (80.0-100.0); Mean Platelet Volume 7.3; Monocytes # (A) 0.6 k/uL (0-1.0); Monocytes % (A) 6 %; Neutrophils % (A) 74 %; Platelet Count 227 k/uL (150-450); RBC 3.84 m/uL (4.30-5.90); RDW 12.2 % (11.5-15.5); WBC 9.5 k/uL (3.8-10.6)
[2021-01-27 06:09] LABS: ALT 42 U/L (4-49); AST 39 U/L (17-59); African American GFR (CKD) >90 (>60 ml/min/1.73 sqM); Albumin 3.1 g/dL (3.5-5.0); Albumin/Globulin Ratio 1.2; Alkaline Phosphatase 52 U/L (38-126); Anion Gap 6 mmol/L; Blood Urea Nitrogen 12 mg/dL (9-20); Calcium 8.2 mg/dL (8.4-10.2); Carbon Dioxide 25 mmol/L (22-30); Chloride 107 mmol/L (98-107); Globulin 2.6 g/dL; Glucose 102 mg/dL (74-99); Non-African American GFR(CKD) >90 (>60 ml/min/1.73 sqM); Sodium 138 mmol/L (137-145); Total Bilirubin 0.5 mg/dL (0.2-1.3); Total Protein 5.7 g/dL (6.3-8.2)
[2021-01-27] MEDS: ACETAMINOPHEN TAB 500 MG TAB PO SCH (06:26)
[2021-01-27] MEDS: ENOXAPARIN 30 MG/0.3 ML SYRINGE SQ SCH (07:14)
[2021-01-27] MEDS: PIPERACILLIN-TAZOBACTAM 3.375 GM in SODIUM CHLORIDE 0.9% 100 ML IVPB SCH (07:14)
[2021-01-27] MEDS: PANTOPRAZOLE 40 MG/10 ML VIAL IV SCH (07:15)
[2021-01-27] MEDS: MELOXICAM 7.5 MG TAB PO SCH (07:15)
[2021-01-27] MEDS: TAMSULOSIN 0.4 MG CAP.ER.24H PO SCH (07:15)
[2021-01-27] MEDS: SODIUM CHLORIDE 0.9% 1,000 ML IV SCH (07:15)
[2021-01-27 07:20] VITALS: BP 132/83; PULSE 64; RESP 14; TEMP 98.5
[2021-01-27] MEDS: HYDROmorphone 1 MG/ML 1 ML SYRINGE IVP PRN (08:44)
--- NOTE | 2021-01-27 11:17 | P.PN ---
Progress Note - Text Progress Note Date: 01/27/21 Patient is a well. No real complaints. On exam her lesser stable. Abdomen soft. Incision sites clean and intact. Status post laparoscopic ostectomy. Patiently discharged home today.
--- NOTE | 2021-01-30 10:22 | P.DS ---
Providers Date of admission: 01/25/21 13:58 Expected date of discharge: 01/27/21 Attending physician: Naila Goyal Primary care physician: Roel Gama - Discharge Diagnosis(es) (1) Acute cholecystitis Status: Acute (2) Essential (primary) hypertension Status: Acute (3) Gangrene of gallbladder in cholecystitis Status: Acute Hospital Course: POSTOPERATIVE DIAGNOSES: 1. Acute gangrenous cholecystitis 2. Essential hypertension 3. Leukocytosis COURSE: The patient is a 45 year-old male who presented with epigastric right upper quadrant pain, white blood cell count over 15,000, and clinical features of acute cholecystitis. He underwent robotic cholecystectomy with findings of acute gangrenous cholecystitis. He was maintained on antibiotics until his white count had improved. Prior to discharge, he was tolerating diet. Pain was controlled. Procedures: OPERATION: 1. Robotic-assisted da Chyna Xi laparoscopic subtotal cholecystectomy, multiport with FIREFLY ESTIMATED BLOOD LOSS: 100 mL. SPECIMENS REMOVED: Gallbladder. COMPLICATIONS: None. Pathology: other (Gallbladder, gallbladder fluid) Condition: stable Disposition: floor Operative Findings: 1. Acute gangrenous cholecystitis with dense adhesions of cystic duct and infundibulum to common bile duct structures. 2. Subtotal cholecystectomy performed 3. Hemostasis obtained using Surgicel Fibrillar along liver bed Patient Condition at Discharge: Stable Plan - Discharge Summary Discharge Rx Participant: No New Discharge Prescriptions: New Ibuprofen [Motrin] 600 mg PO Q8HR PRN #30 tab PRN Reason: Pain Acetaminophen Tab [Tylenol Tab] 1,000 mg PO Q6HR PRN #30 tablet PRN Reason: Pain Discharge Medication List Acetaminophen Tab [Tylenol Tab] 1,000 mg PO Q6HR PRN #30 tablet 01/26/21 [Rx] Ibuprofen [Motrin] 600 mg PO Q8HR PRN #30 tab 01/26/21 [Rx] Follow up Appointment(s)/Referral(s): Roel Gama DO [Primary Care Provider] - 1-2 days Naila Goyal MD [STAFF PHYSICIAN] - 01/30/21 Patient Instructions/Handouts: Low Fat Diet (DC), Laparoscopic Cholecystectomy (DC) Activity/Diet/Wound Care/Special Instructions: Recommend low-fat diet for the next 2 days. No lifting over 10 pounds in 2 weeks until February 08. May shower. No bath tub soaks for two weeks until February 08. Diet as tolerated. Use Tylenol and ibuprofen or Aleve scheduled for the next 24-48 hours for best pain relief. Use ice along incisions for today to prevent swelling. Discharge Disposition: HOME SELF-CARE
== END 2021-01-27 11:50 | disposition home or self-care (01) | DRG 419 ==
LOC: EC 20:52 → 6NMEDSUR 23:16 → OBSVTOIN 01-25 13:58
PROVIDERS: ADMIT Surgery Plastic and Reconstructive Surgery; ATTEND Surgery Plastic and Reconstructive Surgery
PROC: BF502Z0 Other Imaging of Bile Ducts using Fluorescing Agent, Intraoperative (ICD-10-PCS; 2021-01-25)
PROC: 8E0W4CZ Robotic Assisted Procedure of Trunk Region, Percutaneous Endoscopic Approach (ICD-10-PCS; 2021-01-25)
PROC: 0FB44ZZ Excision of Gallbladder, Percutaneous Endoscopic Approach (ICD-10-PCS; principal; 2021-01-25 08:30)
DX: K81.0 Acute cholecystitis (principal); K82.A1 Gangrene of gallbladder in cholecystitis; I10 Essential (primary) hypertension; Z91.041 Radiographic dye allergy status; Z91.013 Allergy to seafood; D72.829 Elevated white blood cell count, unspecified; R33.9 Retention of urine, unspecified
CPT/HCPCS: 36415; 71046; 74177; 76705; 80053; 81003; 82150; 83690; 84484; 85025; 85610; 85730; 87070; 87075; 87077; 87186; 87205; 87635; 88304; 93005; 96374; 96375; 99285

== ENCOUNTER → 2021-01-30 | Outpatient (CLI) | payer BC ==
[2021-01-31 01:43] LABS: Basophils # (A) 0.03 X 10*3/uL (0.00-0.10); Basophils % (A) 0.3 %; Eosinophils # (A) 0.11 X 10*3/uL (0.04-0.35); Eosinophils % (A) 1.3 %; HCT 39.3 % (39.6-50.0); HGB 12.7 g/dL (13.0-17.0); Lymphocytes # (A) 1.94 X 10*3/uL (0.90-5.00); Lymphocytes % (A) 22.2 %; MCH 29.8 pg (27.0-32.0); MCHC 32.3 g/dL (32.0-37.0); MCV 92.3 fL (80.0-97.0); Mean Platelet Volume 9.9 fL (9.5-12.2); Monocytes % (A) 10.3 %; Neutrophils # (A) 5.69 X 10*3/uL (1.80-7.70); Platelet Count 379 X 10*3/uL (140-440); RBC 4.26 X 10*6/uL (4.40-5.60); RDW 12.3 % (11.5-14.5); WBC 8.75 X 10*3/uL (4.50-10.00)
[2021-01-31 04:41] LABS: African American GFR (CKD) 118.3 (60.0-200.0); Albumin 4.4 g/dL (3.80-4.90); Albumin/Globulin Ratio 1.83 (1.60-3.17); Anion Gap 9.6 mmol/L (4.00-12.00); Calcium 9.4 mg/dL (8.7-10.3); Carbon Dioxide 27.4 mmol/L (21.6-31.8); Globulin 2.4 g/dL (1.6-3.3); Non-African American GFR(CKD) 102.1 (60.0-200.0); Potassium 4.3 mmol/L (3.5-5.5); Total Bilirubin 0.3 mg/dL (0.3-1.2); Total Protein 6.8 g/dL (6.2-8.2)
== END | disposition home or self-care (01) ==
LOC: LABWHC1 14:33
PROVIDERS: ATTEND Surgery Plastic and Reconstructive Surgery
DX: K81.0 Acute cholecystitis (principal)
CPT/HCPCS: 36415; 80053; 85025

== ENCOUNTER 2021-02-16 22:41 | Emergency (ER) | payer BC ==
[2021-02-16 22:50] VITALS: BP 152/90; PULSE 100; RESP 18; TEMP 98.8
--- NOTE | 2021-02-17 00:40 | XR ---
EXAM: XR Chest, 2 Views CLINICAL HISTORY: ITS.REASON XR Reason: fever TECHNIQUE: Frontal and lateral views of the chest. COMPARISON: 01/24/2021 FINDINGS: Lungs: Unremarkable. No consolidation. Pleural space: Unremarkable. No pneumothorax. Heart: Unremarkable. No cardiomegaly. Mediastinum: Unremarkable. Bones/joints: Unremarkable. IMPRESSION: No acute pulmonary process.
[2021-02-17 01:18] LABS: Basophils % (A) 0 %; Eosinophils # (A) 0.2 k/uL (0-0.7); Eosinophils % (A) 3 %; HCT 38.7 % (39.0-53.0); HGB 13.5 gm/dL (13.0-17.5); Lymphocytes % (A) 12 %; MCH 30.5 pg (25.0-35.0); MCHC 34.8 g/dL (31.0-37.0); MCV 87.7 fL (80.0-100.0); Mean Platelet Volume 6.7; Monocytes # (A) 0.5 k/uL (0-1.0); Monocytes % (A) 5 %; Neutrophils % (A) 80 %; Platelet Count 281 k/uL (150-450); RBC 4.42 m/uL (4.30-5.90); WBC 8.8 k/uL (3.8-10.6)
[2021-02-17 01:29] LABS: ALT 29 U/L (4-49); AST 31 U/L (17-59); African American GFR (CKD) >90 (>60 ml/min/1.73 sqM); Alkaline Phosphatase 93 U/L (38-126); Anion Gap 8 mmol/L; Blood Urea Nitrogen 13 mg/dL (9-20); Calcium 9.3 mg/dL (8.4-10.2); Carbon Dioxide 24 mmol/L (22-30); Chloride 105 mmol/L (98-107); Glucose 96 mg/dL (74-99); Non-African American GFR(CKD) >90 (>60 ml/min/1.73 sqM); Potassium 3.9 mmol/L (3.5-5.1); Sodium 137 mmol/L (137-145); Total Bilirubin 0.9 mg/dL (0.2-1.3)
[2021-02-17 01:34] LABS: Appearance,Urine Clear (Clear); Bilirubin,Urine Negative (Negative); Blood,Urine Negative (Negative); Color,Urine Colorless; Glucose,Urine (UA) Negative (Negative); Ketones,Urine Negative (Negative); Leukocyte Esterase,Urine Negative (Negative); Nitrite,Urine Negative (Negative); PH, Urine 5.5 (5.0-8.0); Protein,Urine Negative (Negative); Specific Gravity,Urine 1.002 (1.001-1.035); Urobilinogen,Urine <2.0 mg/dL (<2.0)
--- NOTE | 2021-02-17 01:46 | ED ---
Fever HPI - General Chief Complaint: Fever Stated Complaint: Fever Time Seen by Provider: 02/16/21 23:22 Source: patient Mode of arrival: ambulatory - History of Present Illness Initial Comments: This patient is a 45-year-old man who presents to be evaluated for fever. Patient had developed fever this evening. He states he had been feeling well until after he arrived home from work. And he was not feeling quite right. He had a bowel movement he described as being diarrhea. Had a little bit of body aches. They then took his temperature and it was elevated. He took ibuprofen. The temperature was repeated later and it was not coming down much so they presented here to be evaluated. Patient also notes that he had gallbladder surgery on January [address] Goyal. Patient has not noted any abdominal pain. No nausea or vomiting. He states that his incisions are not bothering him. Patient denies any other symptoms of infection. MD Complaint: fever -: hour(s) Temperature Source: oral Associated Symptoms: diarrhea Treatments Prior to Arrival: Ibuprofen - Related Data Previous Rx's Medication Instructions Recorded Acetaminophen Tab [Tylenol Tab] 1,000 mg PO Q6HR PRN #30 tablet 01/26/21 Ibuprofen [Motrin] 600 mg PO Q8HR PRN #30 tab 01/26/21 Allergies Allergy/AdvReac Type Severity Reaction Status Date / Time Iodinated Contrast Media Allergy Anaphylaxis Verified 02/16/21 22:50 shellfish derived [Shellfish] Allergy Anaphylaxis Verified 02/16/21 22:50 Review of Systems ROS Statement: Those systems with pertinent positive or pertinent negative responses have been documented in the HPI. ROS Other: All systems not noted in ROS Statement are negative. Constitutional: Reports: fever. Denies: chills, weakness Eyes: Denies: eye discharge ENT: Denies: throat pain, congestion Respiratory: Denies: cough, dyspnea Cardiovascular: Denies: chest pain, palpitations, edema Gastrointestinal: Reports: diarrhea. Denies: abdominal pain, nausea, vomiting, melena, hematochezia Genitourinary: Denies: dysuria, frequency, hematuria Musculoskeletal: Reports: myalgia. Denies: back pain Skin: Denies: rash Neurological: Denies: headache, weakness Past Medical History Past Medical History: Hypertension History of Any Multi-Drug Resistant Organisms: None Reported Past Surgical History: Cholecystectomy, Orthopedic Surgery Past Anesthesia/Blood Transfusion Reactions: No Reported Reaction Past Psychological History: No Psychological Hx Reported Smoking Status: Never smoker Past Alcohol Use History: Occasional Past Drug Use History: None Reported General Exam General appearance: alert, in no apparent distress Head exam: Present: atraumatic, normocephalic Eye exam: Present: normal appearance. Absent: scleral icterus, conjunctival injection ENT exam: Present: normal oropharynx Neck exam: Present: normal inspection, full ROM. Absent: meningismus Respiratory exam: Present: normal lung sounds bilaterally. Absent: respiratory distress, wheezes, rales, rhonchi, stridor Cardiovascular Exam: Present: regular rate, normal rhythm, normal heart sounds. Absent: systolic murmur, diastolic murmur, rubs, gallop GI/Abdominal exam: Present: soft, normal bowel sounds, other (Patient's surgical incisions are clean dry and intact. There is no abnormal warmth or erythema. No tenderness or evidence of fluid collection). Absent: distended, tenderness, guarding, rebound, rigid, mass Extremities exam: Present: normal inspection, normal capillary refill Back exam: Present: normal inspection. Absent: CVA tenderness (R), CVA tenderness (L) Neurological exam: Present: alert Skin exam: Present: warm, dry, intact, normal color. Absent: rash Course Vital Signs 02/16/21 22:46 Temperature 98.8 F Pulse Rate 100 Respiratory 18 Rate Blood Pressure 152/90 O2 Sat by Pulse 99 Oximetry Medical Decision Making - Medical Decision Making Patient's 45-year-old man fever. The physical exam is benign. There is no evidence of any intra-abdominal process going on on the exam. Patient's labs si milarly looked good. We discussed return parameters and appropriate further care and follow-up. - Lab Data Result diagrams: 02/17/21 01:09 02/17/21 01:09 Lab Results 02/16/21 02/17/21 02/17/21 Range/Units 23:59 01:09 01:09 WBC 8.8 (3.8-10.6) k/uL RBC 4.42 (4.30-5.90) m/uL Hgb 13.5 (13.0-17.5) gm/dL Hct 38.7 L (39.0-53.0) % MCV 87.7 (80.0-100.0) fL MCH 30.5 (25.0-35.0) pg MCHC 34.8 (31.0-37.0) g/dL RDW 12.0 (11.5-15.5) % Plt Count 281 (150-450) k/uL MPV 6.7 Neutrophils % 80 % Lymphocytes % 12 % Monocytes % 5 % Eosinophils % 3 % Basophils % 0 % Neutrophils # 7.0 (1.3-7.7) k/uL Lymphocytes # 1.0 (1.0-4.8) k/uL Monocytes # 0.5 (0-1.0) k/uL Eosinophils # 0.2 (0-0.7) k/uL Basophils # 0.0 (0-0.2) k/uL Sodium (137-145) mmol/L Potassium (3.5-5.1) mmol/L Chloride (98-107) mmol/L Carbon Dioxide (22-30) mmol/L Anion Gap mmol/L BUN (9-20) mg/dL Creatinine (0.66-1.25) mg/dL Est GFR (CKD-EPI)AfAm (>60 ml/min/1.73 sqM) Est GFR (CKD-EPI)NonAf (>60 ml/min/1.73 sqM) Glucose (74-99) mg/dL Plasma Lactic Acid Cesar (0.7-2.0) mmol/L Calcium (8.4-10.2) mg/dL Total Bilirubin (0.2-1.3) mg/dL AST (17-59) U/L ALT (4-49) U/L Alkaline Phosphatase (38-126) U/L Total Protein (6.3-8.2) g/dL Albumin (3.5-5.0) g/dL Urine Color Colorless Urine Appearance Clear (Clear) Urine pH 5.5 (5.0-8.0) Ur Specific [place] 1.002 (1.001-1.035) Urine Protein Negative (Negative) Urine Glucose (UA) Negative (Negative) Urine Ketones Negative (Negative) Urine Blood Negative (Negative) Urine Nitrite Negative (Negative) Urine Bilirubin Negative (Negative) Urine Urobilinogen <2.0 (<2.0) mg/dL Ur Leukocyte Esterase Negative (Negative) Coronavirus (PCR) Not Detected (Not Detectd) 02/17/21 02/17/21 Range/Units 01:09 01:09 WBC (3.8-10.6) k/uL RBC (4.30-5.90) m/uL Hgb (13.0-17.5) gm/dL Hct (39.0-53.0) % MCV (80.0-100.0) fL MCH (25.0-35.0) pg MCHC (31.0-37.0) g/dL RDW (11.5-15.5) % Plt Count (150-450) k/uL MPV Neutrophils % % Lymphocytes % % Monocytes % % Eosinophils % % Basophils % % Neutrophils # (1.3-7.7) k/uL Lymphocytes # (1.0-4.8) k/uL Monocytes # (0-1.0) k/uL Eosinophils # (0-0.7) k/uL Basophils # (0-0.2) k/uL Sodium 137 (137-145) mmol/L Potassium 3.9 (3.5-5.1) mmol/L Chloride 105 (98-107) mmol/L Carbon Dioxide 24 (22-30) mmol/L Anion Gap 8 mmol/L BUN 13 (9-20) mg/dL Creatinine 0.75 (0.66-1.25) mg/dL Est GFR (CKD-EPI)AfAm >90 (>60 ml/min/1.73 sqM) Est GFR (CKD-EPI)NonAf >90 (>60 ml/min/1.73 sqM) Glucose 96 (74-99) mg/dL Plasma Lactic Acid Cesar 1.3 (0.7-2.0) mmol/L Calcium 9.3 (8.4-10.2) mg/dL Total Bilirubin 0.9 (0.2-1.3) mg/dL AST 31 (17-59) U/L ALT 29 (4-49) U/L Alkaline Phosphatase 93 (38-126) U/L Total Protein 7.0 (6.3-8.2) g/dL Albumin 4.0 (3.5-5.0) g/dL Urine Color Urine Appearance (Clear) Urine pH (5.0-8.0) Ur Specific [place] (1.001-1.035) Urine Protein (Negative) Urine Glucose (UA) (Negative) Urine Ketones (Negative) Urine Blood (Negative) Urine Nitrite (Negative) Urine Bilirubin (Negative) Urine Urobilinogen (<2.0) mg/dL Ur Leukocyte Esterase (Negative) Coronavirus (PCR) (Not Detectd) Disposition Clinical Impression: Fever Disposition: HOME SELF-CARE Condition: Good Instructions (If sedation given, give patient instructions): Fever in Adults (ED) Is patient prescribed a controlled substance at d/c from ED?: No Referrals: Roel Gama DO [Primary Care Provider] - 1-2 days Naila Goyal MD [STAFF PHYSICIAN] - 1-2 days
== END 2021-02-17 02:03 | disposition home or self-care (01) ==
LOC: EC 22:41
DX: R50.9 Fever, unspecified (principal); Z20.822 Contact with and (suspected) exposure to COVID-19; I10 Essential (primary) hypertension
CPT/HCPCS: 36415; 71046; 80053; 81003; 83605; 85025; 87040; 87635; 99283